=== PATIENT | female | born 1985 | race Caucasian/White ===

== ENCOUNTER 2021-10-10 13:25 | Outpatient (RCR) | payer OTHER, SELFPAY ==
[2021-09-06 11:02] VITALS: BP 123/67; PULSE 75
[2021-09-14 09:27] VITALS: BP 135/76; PULSE 85
[2021-09-20 09:41] VITALS: BP 138/61; PULSE 85
[2021-09-27 09:34] VITALS: BP 126/71; PULSE 78
[2021-10-04 09:26] VITALS: BP 129/78; PULSE 80
[2021-10-10 15:27] VITALS: BP 137/77; PULSE 86
== END 2021-10-27 13:48 | disposition home or self-care (01) ==
LOC: ANHOBOP 13:25
PROVIDERS: Visit Provider Obstetrics & Gynecology
DX: O24.419 Gestational diabetes mellitus in pregnancy, unspecified control (principal); Z3A.33 33 weeks gestation of pregnancy; Z3A.34 34 weeks gestation of pregnancy; Z3A.35 35 weeks gestation of pregnancy; Z3A.36 36 weeks gestation of pregnancy; Z3A.37 37 weeks gestation of pregnancy
CPT/HCPCS: 59025

== ENCOUNTER 2021-10-16 15:58 | Inpatient (IN) | payer OTHER, SELFPAY ==
[2021-10-16] VITALS (9 sets, daily range): BP systolic 125–146; BP diastolic 65–82; PULSE 72–92; RESP 18; TEMP 36.9–37.1; BMI 33.3
--- NOTE | 2021-10-16 16:43 | LDADM ---
This patient, Tg [place], was admitted to Labor/Delivery/Recovery 109 on 10/16/21 at 15:58. Plans for labor, pain management and were discussed with patient. Patient/family oriented to hospital policies and general routines including ID bracelet, bed and alarms, visiting hours, pain management, procedures, bathroom and other care routines, personal items, smoking policy, room service/diet and guest tray routines, security routines, and visiting hours. Patient/Family are encouraged to report perceived risks to care and to ask questions if they do not understand what they are told or what they should do. See OBIX for further documentation.
[2021-10-16 17:00] LABS: Basophils Absolute Auto 0.1 K/mm3 (0.0-0.1); Basophils Percent Auto 0.4 % (0.2-1.2); Eosinophils Absolute Auto 0.1 K/mm3 (0-0.3); Hematocrit 38.7 % (37.0-47.0); Hemoglobin 13.3 g/dL (12.0-15.0); Immature Granulocyte Absolute 0.07 K/mm3 (0.00-0.031); Immature Granulocyte Percent A 0.5 % (0-0.5); Lymphocytes Absolute Auto 3.76 K/mm3 (0.9-3.2); Lymphocytes Percent Auto 27.7 % (18.3-44.2); Mean Corpuscular HGB Conc 34.4 g/dl (32-36); Mean Corpuscular Hemoglobin 31.1 pg (26-34); Mean Corpuscular Volume 90.4 fl (80-100); Mean Platelet Volume 10.6 fl (7.4-10.4); Monocytes Absolute Auto 0.8 K/mm3 (0.1-0.6); Monocytes Percent Auto 5.8 % (2.6-8.5); Neutrophils Absolute Auto 8.8 K/mm3 (1.3-6.7); Neutrophils Percent Auto 64.6 % (45.5-73.1); Platelet Count Result 259 k/mm3 (150-375); Red Blood Count 4.28 M/mm3 (4.2-5.4); Red Cell Distribution Width 12.5 % (11.5-14.5); White Blood Count 13.6 K/mm3 (4.5-10.0)
[2021-10-16] MEDS: DINOPROSTONE 10 MG VAG INSERT VAGINAL (17:06)
--- NOTE | 2021-10-16 17:27 | WPDANESEPP ---
Anes - Eval Pre Procedure Procedure: labor epidural Date/Time: 10/16/21 17:27 Surgeon: nohemi Pre Op Diagnosis: IOL Patient Data Age: 36 Gender: F Height: 1.6 m Weight: 85.5 kg Last Vital Signs Pulse 92 10/16/21 16:23 BP 146/77 H 10/16/21 16:23 Allergies Allergy/AdvReac Type Severity Reaction Status Date / Time No Known Allergies Allergy Verified 09/27/21 14:33 Laboratory Tests 10/16/21 10/16/21 16:55 16:55 WBC 13.6 K/mm3 H K/mm3 (4.5-10.0) RBC 4.28 M/mm3 M/mm3 (4.2-5.4) Hgb 13.3 g/dL g/dL (12.0-15.0) Hct 38.7 % % (37.0-47.0) MCV 90.4 fl fl (80-100) MCH 31.1 pg pg (26-34) MCHC 34.4 g/dl g/dl (32-36) RDW 12.5 % % (11.5-14.5) Plt Count 259 k/mm3 k/mm3 (150-375) MPV 10.6 fl H fl (7.4-10.4) Immature Gran % (Auto) 0.5 % % (0-0.5) Neut % (Auto) 64.6 % % (45.5-73.1) Lymph % (Auto) 27.7 % % (18.3-44.2) Parke % (Auto) 5.8 % % (2.6-8.5) Eos % (Auto) 1.0 % % (0-4.4) Baso % (Auto) 0.4 % % (0.2-1.2) Lymph # (Auto) 3.76 K/mm3 H K/mm3 (0.9-3.2) Parke # (Auto) 0.8 K/mm3 H K/mm3 (0.1-0.6) Eos # (Auto) 0.1 K/mm3 K/mm3 (0-0.3) Baso # (Auto) 0.1 K/mm3 K/mm3 (0.0-0.1) Abs Immat Gran (auto) 0.07 K/mm3 H K/mm3 (0.00-0.031) Absolute Neuts (auto) 8.8 K/mm3 H K/mm3 (1.3-6.7) Absolute Nucleated RBC 0.0 K/mm3 K/mm3 (0.0-0.012) Nucleated RBC % 0.0 % % (0.0-0.2) RPR Pending Patient hx anesthesia problems: none Family hx anesthesia problems: none Results Review: All pre-operative results and documents have been reviewed as part of the pre-operative evaluation. [facility] Family History Family History (Updated 09/27/21 @ 14:35 by Fadumo Salguero RN) Other No pertinent family history Social History Social History Smoking status: Never smoker Second hand tobacco smoke exposure: No Substance use: never Spiritual care concerns: No Exam Day of Procedure 10/16/21 17:27
[2021-10-16 18:24] LABS: Glucose Point of Care 86 mg/dl (65-105)
[2021-10-16 23:36] LABS: Glucose Point of Care 112 mg/dl (65-105)
[2021-10-17] VITALS (83 sets, daily range): BP systolic 101–147; BP diastolic 55–98; PULSE 55–111; RESP 16–20; TEMP 36.6–37.2; O2SAT 95–100
[2021-10-17 05:21] LABS: Glucose Point of Care 73 mg/dl (65-105)
[2021-10-17] MEDS: LACTATED RINGERS 1,000 ML 125 ML IV CONT ×2 (06:39→09:30)
[2021-10-17] MEDS: OXYTOCIN 30 UNITS/NS 500 ML 30 UNITS/500 ML BAG IV CONT (06:39)
--- NOTE | 2021-10-17 08:40 | WPDOBADMIT ---
Obstetrics - Admit Note Admission Note: record reviewed. Additions to the history and/or subsequent changes in the physical findings follow. 36 y/o at 39 weeks here for induction of labor. Cervidil overnight, has been withdrawn. Having contractions. GBS neg. A2DM, treated with glyburide. AVSS NST reactive TOCO: contractions every 3-5 min ABD soft, nontender, gravid EXT nontender Cervix 3/80/-2. AROM with clear fluid. Vertex Accuchecks normal A: IUP at term with A2DM. P: Oxytocin. Continue accuchecks. Anticipate
[2021-10-17 09:59] LABS: Rapid Plasma Reagin Non-Reactive (NonReactive)
[2021-10-17 10:12] LABS: Glucose Point of Care 86 mg/dl (65-105)
--- NOTE | 2021-10-17 12:10 | PM.OBPNLAB ---
Pain Control Date/time seen: 10/17/21 12:10 Comments: Comfortable with epidural. Pelvic Exam Dilation (cm): 8 Effacement (%): 90 station: 0 Contractions Contraction frequency: 3 Contraction pattern: Regular Status status: Category l Comments: Accucheck 86 Assessment and Plan Comments: Continue oxytocin. Anticipate .
--- NOTE | 2021-10-17 13:10 | P.PCNOB_ITS ---
OB - Delivery Note Procedure Delivery date: 10/17/21 Procedure: Induction of labor with Induction method: per cervidil protocol Delivery augmentation: rupture of membranes and pitocin Delivery monitor: external FHT and external uterine Route of delivery: Laceration Description: Perineal - 2nd Degree Delivery repair: vicryl (3-0) Specimen: Yes (cord blood, placenta) Quantitative Blood Loss (ml): 85 Anesthesia type: Epidural Disposition: PACU Complications: None Narrative: 36 y/o at 39 1/7 weeks gestation who [facility]. Cervidil was placed overnight, then withdrawn the following morning. Accuchecks were normal throughout labor. Oxytocin was administered intravenously. Amniotomy was performed with return of clear fluid. She received an epidural for pain control. Her labor progressed and her cervix dilated completely. She pushed with good effort and delivered the 's head to the perineum, followed by the body. The nose and mouth were bulb suctioned. After a delay, the cord was clamped and cut. The infant was handed off the field. Cord blood was collected. The placenta delivered spontaneously and was grossly normal in appearance. The usual 3 vessel cord was noted. A second degree midline perineal laceration was sustained. This was reapproximated using 3 0 Vicryl in the usual layered fashion. Excellent hemostasis resulted as did excellent reapproximation of the normal anatomy. Needle and instrument counts were correct. The patient was taken to recovery room in stable condition. The went to the nursery in stable condition. I was present and scrubbed for the entire delivery. Baby Date of : 10/17/21 Time of : 12:53 Weeks of gestation at delivery: 39 Infant gender: Male Weight (pounds): 7 Weight (ounces): 5 presentation: vertex position: Right Occiput Anterior Placenta delivery description: Spontaneous and Normal Configuration cord vessel description: 3 Vessels and Delayed Cord Clamping score one minute: 9 score five minutes: 9
--- NOTE | 2021-10-17 13:11 | PM.OBDSVD ---
DS: Admitting Diagnosis Discharge Date 10/18/21 Admitting Diagnosis IUP at 39 1/7 weeks Gestational diabetes DS: Discharge Diagnosis Discharge Diagnosis (1) (normal spontaneous vaginal delivery): Code(s): O80 - Encounter for full-term uncomplicated delivery Status: Acute (2) Gestational diabetes: Code(s): O24.419 - Gestational diabetes mellitus in , unspecified control Status: Acute OB - DS: Summary OB Procedures : None OB Procedures Intrapartum: Spontaneous Vag Delivery OB Procedures: : None DS: Data Data Completed and Pending Labs on day of discharge: Labs from last 24 hours 10/17/21 10/17/21 10/16/21 10:09 05:19 23:26 WBC RBC Hgb Hct MCV MCH MCHC RDW Plt Count MPV Immature Gran % (Auto) Neut % (Auto) Lymph % (Auto) Isabella % (Auto) Eos % (Auto) Baso % (Auto) Lymph # (Auto) Isabella # (Auto) Eos # (Auto) Baso # (Auto) Abs Immat Gran (auto) Absolute Neuts (auto) Absolute Nucleated RBC Nucleated RBC % POC Capillary Glucose 86 73 112 H RPR Blood Type Antibody Screen 10/16/21 10/16/21 10/16/21 18:14 16:55 16:55 WBC RBC Hgb Hct MCV MCH MCHC RDW Plt Count MPV Immature Gran % (Auto) Neut % (Auto) Lymph % (Auto) Isabella % (Auto) Eos % (Auto) Baso % (Auto) Lymph # (Auto) Isabella # (Auto) Eos # (Auto) Baso # (Auto) Abs Immat Gran (auto) Absolute Neuts (auto) Absolute Nucleated RBC Nucleated RBC % POC Capillary Glucose 86 RPR Non-reactive Blood Type O Positive Antibody Screen Negative 10/16/21 16:55 WBC 13.6 H RBC 4.28 Hgb 13.3 Hct 38.7 MCV 90.4 MCH 31.1 MCHC 34.4 RDW 12.5 Plt Count 259 MPV 10.6 H Immature Gran % (Auto) 0.5 Neut % (Auto) 64.6 Lymph % (Auto) 27.7 Isabella % (Auto) 5.8 Eos % (Auto) 1.0 Baso % (Auto) 0.4 Lymph # (Auto) 3.76 H Isabella # (Auto) 0.8 H Eos # (Auto) 0.1 Baso # (Auto) 0.1 Abs Immat Gran (auto) 0.07 H Absolute Neuts (auto) 8.8 H Absolute Nucleated RBC 0.0 Nucleated RBC % 0.0 POC Capillary Glucose RPR Blood Type Antibody Screen Discharge Plan Discharge Attending physician on discharge: Michael Mahan Discharging Clinician: Michael Mahan Patient Disposition: Home, Self-Care Activity: pelvic rest Diet: regular Discharge Instructions: Call or return if temperature above 100.4? F, increased abdominal pain, increased vaginal bleeding or any new problems. Stand Alone Forms: General Discharge Information Follow-up/Referrals: Michael Mahan MD [Physician] - 6 Weeks Discharge Medications: New ibuprofen 600 mg tablet 600 mg PO Q6H PRN (Reason: cramps) Qty: 30 RF: 0 Continued 28-800 mg-mcg Tablet 1 tablet PO DAILY RF: 0 Discontinued glyburide 5 mg tablet 2.5 mg PO HS RF: 0 Date of admission: 10/16/21 15:58 Primary Care Provider: PHYSICIAN,ICE DELIVERY DRIVER Admitting Provider: Michael Mahan Attending physician on admission: Michael Mahan Condition: Stable
[2021-10-17] MEDS: OXYTOCIN 30 UNITS/NS 500 ML 30 UNITS/500 ML BAG 125 UNITS IV CONT (13:27)
[2021-10-17] MEDS: WITCH HAZEL 40 PADS 1 PAD TOPICAL (15:33)
[2021-10-17] MEDS: BENZOCAINE 20% AER SPR (*SP) 56 GM CAN 1 SPRAY TOPICAL (15:33)
--- NOTE | 2021-10-17 16:00 | PC.NURSE ---
Patient transferred to post room #1600 via stretcher. Support person present. Oriented to unit, room, information board, rooming in, admission packet and security measures. Patient verbalizes understanding.
[2021-10-17] MEDS: IBUPROFEN 600 MG TABLET PO (18:55)
[2021-10-17] MEDS: ACETAMINOPHEN 325 MG TABLET 650 MG PO (22:57)
[2021-10-18 03:40] VITALS: BP 119/67; PULSE 65; RESP 16; TEMP 36.8; O2SAT 100
[2021-10-18 08:20] VITALS: BP 126/85; PULSE 73; RESP 16; TEMP 36.7; O2SAT 98
--- NOTE | 2021-10-18 08:22 | PM.OBPNVD ---
OB - PN: Subj Subjective Date/time seen: 10/18/21 08:22 Narrative: Pain OK. Would like circumcision for son. Would like to go home. OB - PN: Obj Data Labs CBC & Chem 7: 10/18/21 03:37 Labs: Laboratory Results - last 24 hr 10/16/21 10/17/21 10/18/21 16:55 10:09 03:37 Hgb 11.0 L Hct 33.0 L POC Capillary Glucose 86 RPR Non-reactive OB - PN A/P Plan Comments: A: PPD#1, doing well. P: Reviewed circ. Home to f/u 6 weeks. Exam Psych: Other: AVSS ABD soft, nontender, fundus firm EXT nontender
[2021-10-18] MEDS: MULTIVIT/MIN/PREN/FOL AC/IRON TABLET 1 TAB PO (08:47)
--- NOTE | 2021-10-18 08:49 | WPDANLDPN2 ---
Anes-Prog Note L&D Date/Time: 10/18/21 08:49 Comfortable throughout: labor and delivery Neuraxial method: epidural Epidural/Spinal procedure site: clean & non-tender Neuro status: Neuro function grossly intact. Cardiovascular status: normal Respiratory status: normal Airway patency: baseline Mental status: baseline Post-Op hydration status: normal Vital Signs: Last Vital Signs Temp 36.8 C 10/18/21 03:40 Pulse 65 10/18/21 03:40 Resp 16 10/18/21 03:40 BP 119/67 10/18/21 03:40 Pulse Ox 100 10/18/21 03:40 Pain score (VAS): 0 Post-procedural complaints: none Patient feedback: Patient satisfied with anesthetic care.
[2021-10-18] MEDS: MEASLES,MUMPS,RUBELLA VACCINE 0.5 ML VIAL SUB-Q (10:39)
--- NOTE | 2021-10-18 11:18 | PC.NURSE ---
Patient viewed the discharge video Mother & Baby Care, The First Two Weeks . Patient was given the opportunity and encouraged to ask questions. Patient verbalized understanding of information shared and has been given the mother/baby guide for home reference.
[2021-10-18 11:35] VITALS: BP 118/74; PULSE 74; RESP 16; TEMP 36.8; O2SAT 100
[2021-10-19 08:44] VITALS: BP 123/74; PULSE 75; RESP 20; TEMP 37.3; O2SAT 99
== END 2021-10-18 14:20 | disposition home or self-care (01) | DRG 807 ==
LOC: ANHLDR 10-17 13:13 → ANHOB2 10-17 16:14
PROVIDERS: Admitting Provider Obstetrics & Gynecology; Visit Provider Obstetrics & Gynecology
DX: O24.425 Gestational diabetes mellitus in childbirth, controlled by oral hypoglycemic drugs (principal); Z37.0 Single live birth; O70.1 Second degree perineal laceration during delivery; O76 Abnormality in fetal heart rate and rhythm complicating labor and delivery; Z3A.39 39 weeks gestation of pregnancy; Z23 Encounter for immunization
CPT/HCPCS: 36415; 82948; 85014; 85018; 85025; 86592; 86850; 86900; 86901; 88307; 90471; 90653; 90710; A9270; G0008; J2590; J2795; J7120